=== PATIENT | female | born 1965 | race Caucasian/White ===

== ENCOUNTER → 2017-06-30 | Outpatient (CLI) | payer BC, OTHER ==
--- NOTE | 2017-06-30 16:28 | Diagnostic Imaging Report ---
MAZIN TERRELL [facility] [address] [facility] [address] [id number] Report Submission Date: Jun 30, 2017 12:29:15 PM AGRICULTURAL EQUIPMENT MECHANIC Patient Study Name: ABBIE DAVIS Date: Jun 30, 2017 12:16:20 PM AGRICULTURAL EQUIPMENT MECHANIC Modality Type: CR Gender: F Description: LOWER EXTREMITY : 61 Institution: [facility] Physician: MAZIN TERRELL Examination: Plain film ankle History: Injury Findings: 3 views of the ankle demonstrates avulsion off the tip of the fibula. Tibia is intact. Talar dome is intact. Lateral soft tissue swelling. Calcaneal spurs. No joint effusion. Impression: Fracture off the tip of the fibula. Electronically signed on Jun 30, 2017 12:29:15 PM AGRICULTURAL EQUIPMENT MECHANIC by: Prince THOMPSON
== END ==
LOC: RAD 12:07
PROVIDERS: ATTEND Family Medicine
DX: M25.571 Pain in right ankle and joints of right foot (principal)
CPT/HCPCS: 73610

== ENCOUNTER 2017-07-25 15:25 | Outpatient (CLI) | payer BC ==
--- NOTE | 2017-07-25 19:05 | Diagnostic Imaging Report ---
MAZIN TERRELL [facility] [address] [facility] [address] [address] Report Submission Date: Jul 25, 2017 7:00:43 PM CERTIFIED ART THERAPIST Patient Study Name: ABBIE DAVIS Date: Jul 25, 2017 3:45:48 PM CERTIFIED ART THERAPIST Modality Type: CR Gender: F Description: LOWER EXTREMITY : 61 Institution: [facility] Physician: MAZIN TERRELL Right ankle, 3 views. History: FOLLOW-UP FRACTURE Findings: Comparison is made to exam dated 06/30/2017. The fracture of the tip of the fibula is again identified without significant displacement. No callus or periosteal reaction is identified. The ankle mortise is intact. There is no soft tissue swelling identified. Impression: 1. Distal fibular tip fracture, unchanged Electronically signed on Jul 25, 2017 7:00:43 PM CERTIFIED ART THERAPIST by: Jg THOMPSON
== END 2017-07-25 15:26 ==
LOC: RAD 15:25
PROVIDERS: ATTEND Family Medicine
DX: S82.831D Other fracture of upper and lower end of right fibula, subsequent encounter for closed fracture with routine healing (principal)
CPT/HCPCS: 73610